=== PATIENT | female | born 1985 | race Caucasian/White ===

== ENCOUNTER → 2018-03-05 | Outpatient (CLI) | payer OTHER ==
--- NOTE | ~2018-03-05 | 24HR ---
[address] [place] [address] 24 HR ELECTROCARDIOGRAM REPORT Name: SHREYA GIBSON Room [facility]: [id number] Admission: 03/05/18 Attend Phys: Nikki Willard, Discharge: Date of : 85 Date of Service: 03/06/18 1507 Report #: [id number] THIS REPORT FOR: //name// [facility] Test Date: 2018-03-06 Test Time: 15:07:00 Pat Name: SHREYA GIBSON Department: Room: Gender: Equipment Engineer: : [id number] Requested By: Nikki Willard Order Number: [id number] Reading MD: Yariel Patiño Interpretive Statements 1. The study duration was 48 hours and the technical quality was good. 2. Predominant rhythm sinus rhythm at an average heart rate of 65 bpm, range 42-145 bpm. Longest RR interval 1.5 seconds. 3. Occasional atrial premature complexes. No atrial fibrillation or atrial flutter. No heart block. No pauses. No paroxysmal supraventricular tachycardia. 4. Rare, isolated premature ventricular complexes. No ventricular couplets. No ventricular tachycardia. 5. No symptoms reported Electronically Signed On 03-21-2018 8:40:51 CDT by Yariel Patiño [email or web address] <ELECTRONICALLY SIGNED> By: Yariel Patiño MD, [facility] 03/21/18 0840 1507 1507 Yariel Patiño MD, [facility] /EPI
== END ==
LOC: CV 11:16
DX: Z01.818 Encounter for other preprocedural examination (principal); R55 Syncope and collapse